=== PATIENT | male | born 1970 | race Caucasian/White ===

== ENCOUNTER 2021-12-18 09:06 | Emergency (ER) | payer SELFPAY ==
[~2021-12-18] VITALS: Ht 180.3 cm; Wt 95.3 kg
--- NOTE | 2021-12-18 09:17 | NUR ---
ARRIVAL PT ARRIVED AMBULATORY TO ED 4 WITH C/O A SINUS INFECTION AND WITHIN THE LAST 24 HRS THE LEDT SIDE OF HIS FACE IS SWOLLEN. VITALS TAKEN AND DR NOTIFIED.
[2021-12-18 09:21] VITALS: BP 153/104
[2021-12-18] MEDS ORDERED: TORADOL IM STA (09:48)
[2021-12-18] MEDS ORDERED: ZOFRAN ODT SL STA (09:48)
[2021-12-18] MEDS ORDERED: ZOFRAN ODT ONE (09:51)
[2021-12-18] MEDS ORDERED: TORADOL ONE (09:51)
--- NOTE | 2021-12-18 10:10 | ER.PDOC ---
General Chief Complaint: Eye Problems Stated Complaint: SWOLLEN FACE Time seen by MD: 09:12 Source: patient Exam Limitations: no limitations History of Present Illness Initial Comments Patient is a 51-year-old male with past medical history documented later in this chart who presents with 3 weeks of worsening sinus pain. Patient states that he has had a sinus infection or drainage with associated face pain over the past 3 weeks. Patient states that it started out as green mucus coming out of his nose states that this is continued however seems to have lightened up some. Patient states he has associated Symptom of left-sided sinus pain he states that started about 2-1/2 weeks ago is sore in nature made worse with palpation and and nothing seems to make it better. Patient states he is also had associated fever that is subjective they have not been taking it at home. Patient's states that they have tried Mucomyst at home with no resolution in symptoms. Patient denies any shortness of breath cough sore throat but does state that his left ear also has some pain in it as well. Patient states that this is been going on for 3 weeks and he does not feel well.Patient also endorses mild nausea. Allergies: Coded Allergies: No Known Allergies (Unverified , 12/18/21) Constitutional: chills; denies diaphoresis; fever, malaise; denies weakness EENTM: denies eye pain, denies blurred vision, denies tearing, denies double vision; ear pain; denies ear discharge; nose pain, nose congestion; denies throat pain, denies throat swelling, denies mouth pain, denies mouth swelling Respiratory: denies cough, denies orthopnea, denies shortness of breath, denies SOB with exertion, denies SOB at rest, denies stridor, denies wheezing Cardiovascular: denies chest pain, denies edema, denies irregular heart rate, denies lightheadedness, denies palpitations, denies syncope Gastrointestinal: denies abdomen distended, denies abdominal pain, denies blood streaked bowels, denies constipated, denies diarrhea, denies difficulty swallowing; nausea; denies poor appetite, denies poor fluid intake, denies rectal bleeding, denies vomiting Genitourinary: denies burning, denies dysuria Musculoskeletal: denies back pain, denies gout Skin: denies change in color, denies change in hair/nails, denies dryness, denies lesions, denies lumps, denies rash Psychiatric/Neurological: headache; denies numbness Endocrine: denies no symptoms reported, denies see HPI, denies excessive sweating, denies flushing, denies intolerance to cold, denies intolerance to heat, denies increased hunger, denies increased thrist, denies increased urine, denies unexplained weight gain, denies unexplaned weight loss, denies other Hematologic/Lymphatic: denies no symptoms reported, denies see HPI, denies anemia, denies blood clots, denies easy bleeding, denies easy bruising, denies swollen glands, denies other Past Medical History Medical History: no pertinent history Surgical History: no surgical history Family History Significant Family History: no pertinent family hx Social History Smoking: non-smoker Alcohol Use: none Drug Use: none Reviewed Nursing Reviewed: Vital Signs, Abn. Noted, Nursing Assessment Physical Exam General Appearance: alert, no distress Eye: eyes nml inspection, lids & conjunct. nml, PERRL, no nystagmus Ear: TM erythema Nose: mucosal edema (Tenderness to palpation along the sinuses) Throat: pharyngeal erythema Neck: nml inspection, supple Respiratory: no resp.distress, breath sounds nml Abdomen: non-tender, no organomegaly CVS: reg rate & rhythm, heart sounds nml Skin: color nml, no rash, warm/dry Extremities: non-tender, nml ROM, no pedal edema NEURO/PSYCH: oriented x 3, CN's nml as tested, motor nml, sensation nml, mood/affect nml Results/Orders Results/Orders Orders - JAMES WHITNEY MD Ketorolac Tromethamine (Toradol) (12/18/21 09:48) Ondansetron (Zofran Odt) (12/18/21 09:48) Ondansetron (Zofran Odt) (12/18/21 09:51) Ketorolac Tromethamine (Toradol) (12/18/21 09:51) Vital Signs Date Time Temp Pulse Resp B/P (MAP) Pulse Ox O2 Delivery O2 Flow Rate FiO2 12/18/21 09:21 98.3 76 18 98 12/18/21 09:21 98.3 76 18 12/18/21 09:21 98.3 76 18 153/104 (120) 98 Room Air* 0 21 Administered Medications Medications (Trade) Dose Ordered Sig/Blayne Route PRN Reason Start Time Stop Time Status Last Admin Dose Admin Ketorolac Tromethamine (Toradol) 15 mg OT STAT IM 12/18/21 09:48 12/18/21 09:50 DC 12/18/21 09:54 15 MG Ondansetron HCl (Zofran Odt) 4 mg OT STAT SL 12/18/21 09:48 12/18/21 09:50 DC 12/18/21 09:55 4 MG Progress Progress Patient here with 3 weeks worth of sinus infection this now meets criteria for antibiotics. We will give patient some symptomatic control medications here no need for further work-up at this time and anticipate discharge with antibiotics and other medications. [id number] doing well will discharge with antibiotics you have fluticasone Zofran and close follow-up. Patient voiced understanding when to follow-up and when to return to the ER ER DEPART Departure Time of Disposition: 10:09 Disposition: 01 HOME / SELF CARE / HOMELESS Impression: Primary Impression: Sinus infection Condition: Improved Patient Instructions: Sinusitis Referrals: PCP,UNKNOWN (PCP) PRIMARY CARE PROVIDER Additional Instructions: As we discussed you need to follow-up with your primary care provider within 1 week. Please take all medications as prescribed. If you have any new persistent or worsening symptoms or concerns seek medical attention. Duration or Time Spent with Pa: 30 Problem Qualifiers Primary Impression: Sinus infection Sinusitis location: unspecified location Chronicity: acute Recurrence: not specified as recurrent Qualified Codes: J01.90 - Acute sinusitis, unspecified JAMES WHITNEY MD Dec 18, 2021 10:10
[2021-12-18 10:21] VITALS: BP 149/103
== END 2021-12-18 10:21 | disposition home or self-care (01) ==
LOC: ER 09:06
DX: J01.90 Acute sinusitis, unspecified (principal); R11.10 Vomiting, unspecified; R11.0 Nausea; J34.89 Other specified disorders of nose and nasal sinuses
CPT/HCPCS: 99283; 96372; J1885